=== PATIENT | male | born 1955 | race Caucasian/White ===

== ENCOUNTER → 2019-07-19 | Outpatient (CLI) | payer MEDICARE ==
--- NOTE | 2019-07-19 14:24 | XCELERA REPORT ---
[address] [address] Transthoracic Echocardiogram Report Name: WANDY BAUM Age: 64 yrs Gender: Male : 1955 Patient Status: Outpatient Patient Location: Study Date: 07/19/2019 09:10 AM History: CAD CABG Systemic hypertension Dyslipidemia Height: 69 in Weight: 175 lb BSA: 2.0 m2 Procedure: A complete two-dimensional transthoracic echocardiogram was performed (2D, M-mode, spectral and color flow Doppler). The study was technically adequate with some images being suboptimal in quality. Reason For Study: CORONARY ARTERY BYPASS GRAFT Previous Evaluation: No previous studies were available. History: CAD. Dyslipidemia. HTN. Smoker: current. Vascular surgeries/interventions: CABG. Ordering Physician: CARMEN TEJADA Performed By: Yassine Arambula Interpretation Summary Left ventricular systolic function is moderately reduced. The Ejection Fraction estimate is 35-40% The right ventricular systolic function is mildly reduced. There is a trace amount of mitral regurgitation There is no aortic valve stenosis There is a trace amount of tricuspid regurgitation There is no pericardial effusion. MMode/2D Measurements & Calculations RVDd: 2.6 cm LVIDd: 5.9 cm FS: 11.7 % Ao root diam: IVSd: 0.89 cm LVIDs: 5.2 cm EDV(Teich): 3.0 cm LVPWd: 0.88 cm 176.0 ml Ao root area: ESV(Teich): 7.1 cm2 132.2 ml LA dimension: EF(Teich): 24.9 % 3.5 cm LVLd ap4: 8.2 cm SV(MOD-sp4): 45.0 ml EDV(MOD-sp4): 145.0 ml LVLs ap4: 7.0 cm ESV(MOD-sp4): 100.0 ml EF(MOD-sp4): 31.0 % Doppler Measurements & Calculations MV E max alanis: MV P1/2t max alanis: Ao V2 max: LV V1 max P.3 cm/sec 63.1 cm/sec 104.8 cm/sec 1.2 mmHg MV A max alanis: MV P1/2t: 75.7 msec Ao max P.4 mmHg LV V1 max: 73.4 cm/sec MVA(P1/2t): 2.9 cm2 55.4 cm/sec MV E/A: 0.82 MV dec slope: 244.2 cm/sec2 MV dec time: 0.21 sec PA V2 max: PI end-d alanis: MV P1/2t-pr_phl: 77.0 cm/sec 154.7 cm/sec 75.7 msec PA max P.4 mmHg Left Ventricle The left ventricle is mildly to moderately dilated. There is mild concentric left ventricular hypertrophy. Left ventricular systolic function is moderately reduced. The Ejection Fraction estimate is 35-40%. Doppler measurements suggest impaired left ventricular relaxation, which is associated with grade I/IV or mild diastolic dysfunction. Septal motion is consistent with post- operative state. There is anteroseptal wall severe hypokinesis. There is distal anterior wall severe hypokinesis. There is mid to distal anterior wall severe hypokinesis. There is proximal anterior wall severe hypokinesis. Right Ventricle The right ventricle is normal size. The right ventricular systolic function is mildly reduced. Atria The right atrium is normal. The left atrium is mildly dilated. The interatrial septum is intact with no evidence for an atrial septal defect. The interatrial septum bows toward right atrium consistent with elevated left atrial pressure. Mitral Valve The mitral valve is grossly normal. There is a trace amount of mitral regurgitation. Aortic Valve The aortic valve is normal in structure and function. The aortic valve is trileaflet. The aortic valve opens well. There is no aortic valve stenosis. There is a trace amount of aortic regurgitation. Tricuspid Valve The tricuspid valve is normal in structure and function. There is a trace amount of tricuspid regurgitation. Tricuspid regurgitation jet envelope not well defined to measure RV systolic pressure accurately. Pulmonic Valve The pulmonic valve is normal in structure and function. There is a mild amount of pulmonic regurgitation. Great Vessels The aortic root is normal size. The inferior vena cava appeared normal and decreased > 50% with respiration (RAP 5-10 mmHg). Effusions There is no pericardial effusion. : CARMEN TEJADA Anil
== END ==
LOC: SP 08:23
PROVIDERS: ATTEND Internal Medicine
DX: I25.10 Atherosclerotic heart disease of native coronary artery without angina pectoris (principal); I10 Essential (primary) hypertension; E78.5 Hyperlipidemia, unspecified; Z95.1 Presence of aortocoronary bypass graft; F17.200 Nicotine dependence, unspecified, uncomplicated
CPT/HCPCS: 93306

== ENCOUNTER → 2019-09-04 | Outpatient (CLI) | payer MEDICARE ==
[~2019-09-04] MED LIST: REGADENOSON INJ 0.4 MG/5 ML DISP.SYRIN IV ONE
--- NOTE | 2019-09-04 13:14 | DRAGON STRESS TEST REPORT ---
Pharmacological nuclear stress test Date: September 04, 2019 Referring physician: Favio Lira MD Performing physician: Jason Alonso MD Indication: Status post CABG, LV dysfunction Clinical history 64 year-old with medical history significant for coronary artery disease status post CABG in 2012 who was found to have LV dysfunction. We decided to proceed with pharmacological nuclear stress test to evaluate for myocardial ischemia to see if he had any revascularization targets. Procedure The patient presented to the stress lab. Initially rest images were obtained according to standard protocol after the injection of 12.98 millicurie technetium 99m sestamibi. Subsequently the patient underwent pharmacological stress utilizing 0.4 mg of regadenoson intravenously. The patient's EKG and vital signs were monitored throughout the procedure. Subsequently patient was injected with 36.7 millicuries of technetium 99m sestamibi. After a period of rest, stress images were obtained according to standard protocol. EKG showed sinus rhythm at 63 beats per minute with left ventricular hypertrophy and repolarization abnormality. His blood pressure was 168/101 mmHg. The patient's stress EKG did not show any evidence for myocardial ischemia. There were no arrhythmias observed. He developed mild sinus tachycardia which subsequently subsided. His maximum blood pressure was 177/101 mmHg. Raw as well as processed rest and stress images were reviewed. Attenuation correction was available for the study. There was mild to moderate gut uptake which did not interfere with the study. The rest and stress images show predominantly fixed moderate sized inferior wall defect with no significant reversibility. There is also a small fixed septal defect as well. There is moderate global hypokinesis post-stress. The calculated ejection fraction is 33 %. The TID ratio is 1.03 Conclusion The stress EKG is negative for myocardial ischemia. There is no scintigraphic evidence of myocardial ischemia provoked by pharmacological stress. There is predominantly fixed defect in the inferior wall and also in the distal septum suggestive of scar. There is moderate global hypokinesis. The gated left ventricular ejection fraction is 33 %. The patient will be given an appointment to discuss these results. [facility]
--- NOTE | 2019-09-05 13:26 | DRAGON STRESS TEST REPORT ---
Pharmacological nuclear stress test Date: 09/04/2019 Referring physician: carmella Lira MD Performing physician:Jason Alonso MD Indication: CABG, LV dysfunction Clinical history 64 year-old with medical history significant for CAD, s/p CABG in 2013 who was found to have LV dysfunction. We decided to proceed with pharmacological nuclear stress test to evaluate for myocardial ischemia to see if he had any revascularization targets. Procedure The patient presented to the stress lab. Initially rest images were obtained according to standard protocol after the injection of 12.98 millicurie technetium 99m sestamibi. Subsequently the patient underwent pharmacological stress utilizing 0.4 mg of regadenoson intravenously. The patient's EKG and vital signs were monitored throughout the procedure. Subsequently patient was injected with 36.7millicuries of technetium 99m sestamibi. After a period of rest, stress images were obtained according to standard protocol. EKG showed sinus rhythm at 63 beats per minute. The patient's stress EKG did not show any evidence for myocardial ischemia. There were no arrhythmias observed.The peak BP was 177/101 mm Hg. Raw as well as processed rest and stress images were reviewed. Attenuation correction was available for this study, There was mild to moderate gut uptake which did not interfere with the study. The rest and stress images show predominantly fixed moderate sized defect in the inferior wall with no significant reversibility. There is a small fixed septal defect as well. There is moderate global hypokinesis. The calculated ejection fraction is 33 %. The TID ratio is 1.03. Conclusion The stress EKG is negative for myocardial ischemia There is no scintigraphic evidence of myocardial ischemia provoked by pharmacological stress. There is predominantly fixed defect in the inferior wall and distal septum suggestive of scar. There is normal contractility post-stress. The gated left ventricular ejection fraction is 33%. The patient will be given an appointment to discuss these results. [facility]
== END ==
LOC: RAD 06:39
PROVIDERS: ATTEND Internal Medicine
DX: I25.810 Atherosclerosis of coronary artery bypass graft(s) without angina pectoris (principal)
CPT/HCPCS: 93017; 78452; A9500; J2785; Q9969

== ENCOUNTER → 2019-12-19 | Outpatient (CLI) | payer MEDICARE ==
--- NOTE | 2019-12-20 09:33 | XCELERA REPORT ---
[address] [address] Transthoracic Echocardiogram Report Name: WANDY BAUM Age: 64 yrs Gender: Male : 1955 Patient Status: Outpatient Patient Location: Study Date: 12/19/2019 07:00 AM History: CHF CABG CAD Height: 68 in Weight: 178 lb BSA: 1.9 m2 Procedure: A complete two-dimensional transthoracic echocardiogram was performed (2D, M-mode, spectral and color flow Doppler). The study was technically adequate with some images being suboptimal in quality. Reason For Study: CHF Previous Evaluation: A previous study was performed on 07/19/2019- [id number]%. History: CHF. CHF CABG CAD. Ordering Physician: CARMEN TEJADA Performed By: Kaila Howadr Interpretation Summary Compared to prior study dated 07/19/2019 there has been no improvement in LVEF. Left ventricular systolic function is moderately reduced. The Ejection Fraction estimate is 35-40% The right ventricular systolic function is moderately reduced. There is no mitral regurgitation noted. There is no aortic valve stenosis There is a trace amount of tricuspid regurgitation There is no pericardial effusion. Compared to prior study dated 07/19/2019 there has been no improvement in LVEF MMode/2D Measurements & Calculations RVDd: 2.2 cm LVIDd: 6.1 cm FS: 17.9 % Ao root diam: IVSd: 1.00 cm LVIDs: 5.0 cm EDV(Teich): 2.8 cm LVPWd: 1.1 cm 188.5 ml Ao root area: ESV(Teich): 6.2 cm2 119.9 ml EF(Teich): 36.4 % EDV(MOD-sp4): SV(MOD-sp4): 113.3 ml 46.8 ml ESV(MOD-sp4): 66.5 ml EF(MOD-sp4): 41.3 % Doppler Measurements & Calculations MV E max alanis: MV dec slope: Ao V2 max: LV V1 max P.6 cm/sec 117.6 cm/sec 4.1 mmHg MV A max alanis: 404.3 cm/sec2 Ao max PG: LV V1 max: 82.2 cm/sec MV dec time: 0.17 sec 5.5 mmHg 101.6 cm/sec MV E/A: 0.85 PA V2 max: 90.9 cm/sec PA max P.3 mmHg Left Ventricle The left ventricle is mildly to moderately dilated. There is moderate concentric left ventricular hypertrophy. Left ventricular systolic function is moderately reduced. The Ejection Fraction estimate is 35-40%. Doppler measurements suggest impaired left ventricular relaxation, which is associated with grade I/IV or mild diastolic dysfunction. There is moderate global hypokinesis of the left ventricle. Right Ventricle The right ventricle is normal size. The right ventricular systolic function is moderately reduced. Atria The right atrium is normal. The left atrium is mildly dilated. The interatrial septum is intact with no evidence for an atrial septal defect. There is no Doppler evidence for an interatrial shunt. Mitral Valve The mitral valve is grossly normal. There is no mitral valve stenosis. There is no mitral regurgitation noted. Aortic Valve The aortic valve is trileaflet. The aortic valve is normal in structure and function. The aortic valve opens well. There is no aortic valve stenosis. No aortic regurgitation is present. Tricuspid Valve The tricuspid valve is not well visualized, but is grossly normal. There is a trace amount of tricuspid regurgitation. Tricuspid regurgitation jet envelope not well defined to measure RV systolic pressure accurately. Pulmonic Valve The pulmonic valve is not well visualized. There is no pulmonic valvular stenosis. There is a trace amount of pulmonic regurgitation. Great Vessels The aortic root is normal size. The inferior vena cava appeared normal and decreased > 50% with respiration (RAP 5-10 mmHg). Effusions There is no pericardial effusion. : CARMEN TEJADA Anil
== END ==
LOC: SP 07:47
PROVIDERS: ATTEND Internal Medicine
DX: I11.0 Hypertensive heart disease with heart failure (principal); I50.22 Chronic systolic (congestive) heart failure; I42.0 Dilated cardiomyopathy
CPT/HCPCS: 93306